=== PATIENT | female | born 1990 | race Caucasian/White ===

== ENCOUNTER → 2016-09-22 | Outpatient (CLI) | payer OTHER ==
--- NOTE | 2016-09-23 02:36 | REP ---
Clinical: Anatomical evaluation. Comparison: 08/18/2016 . Findings: Examination demonstrates a single live intrauterine in transverse presentation. motion is identified by technologist. Placenta is noted anteriorly and grade zero without evidence for placenta previa or abruption. Amniotic fluid volume is normal. Cervix measures 4.5 cm in length and appears closed. No evidence for nuchal cord. Gestational age by LMP 29 weeks 1 day with SHANNAN 12/07/2016 . Gestational age by current measurements 31 weeks 1 day with SHANNAN 11/23/2016 . FHR equals 150 beats per minute. Amniotic fluid index equals 15.8 cm Estimated weight 1744 grams ( 97th percentile based on age by LMP ). Anatomical assessment demonstrates normal structures including cranium, choroid plexus, cavum, cerebellum/posterior fossa, facial features, lungs, four-chamber heart/ventricular outflow tracts, diaphragm, stomach, cord insertion/three-vessel cord, kidneys/bladder, and spine. Impression: Single live intrauterine in transverse lie. Anatomical assessment is complete and normal. Estimated weight upper limits of normal range given age based on LMP. Signed by Dominic Hernandes MD 09/23/2016 02:28 A
== END ==
LOC: M RAD 12:55
PROVIDERS: ATTEND Specialist
DX: Z34.82 Encounter for supervision of other normal pregnancy, second trimester (principal); Z36 Encounter for antenatal screening of mother

== ENCOUNTER → 2016-11-01 | Outpatient (CLI) | payer OTHER ==
[2016-11-01 14:28] LABS: BASO % 0.3 % (0.0-1.0); EOS % 0.5 % (0.0-3.0); LARGE UNSTAINED CELL # 0.2 K/mm3 (0.0-0.4); LARGE UNSTAINED CELL % 2.3 % (0.0-4.0); LYMPH # 1.9 K/mm3 (1.5-6.5); MEAN CORPUSCULAR HEMOGLOBIN 31.1 pg (27.0-33.0); MEAN CORPUSCULAR HGB CONC 34.3 g/dl (32.0-36.5); MEAN CORPUSCULAR VOLUME 90.7 fl (80.0-96.0); MONO # 0.3 K/mm3 (0.0-0.8); MONO % 3.4 % (0.0-5.0); NEUTROPHILS # 7.3 K/mm3 (1.8-7.7); NEUTROPHILS % 74.5 % (36.0-66.0); PLATELET COUNT, AUTOMATED 208 k/mm3 (150-450); RED CELL DISTRIBUTION WIDTH 13.4 % (11.5-14.5); WHITE BLOOD COUNT 9.8 K/mm3 (4.0-10.0)
== END ==
LOC: M LAB 12:26
PROVIDERS: ATTEND Advanced Practice Midwife
DX: Z34.83 Encounter for supervision of other normal pregnancy, third trimester (principal); Z36 Encounter for antenatal screening of mother